=== PATIENT | female | born 2000 | race Hispanic/Latino ===

== ENCOUNTER 2024-07-09 19:08 | Emergency (ER) | payer SELFPAY ==
[~2024-07-09] VITALS: Ht 157.5 cm; Wt 65.8 kg
[2024-07-09] MEDS ORDERED: CLIN-141 PO (19:38)
--- NOTE | 2024-07-09 19:39 | ERN ---
ED Note History of Present Illness Stated Complaint: WOUND LEFT ARM Chief Complaint: Wound Check Time Seen by MD: 19:15 Dictation: PATIENT IS A 24-YEAR-OLD FEMALE WHO WITH A RAISE PAINFUL LESION TO HER LEFT LATERAL DISTAL BICEPS AREA SHE HAS HAD FOR ONE WEEK. NO FEVER NO CHILLS NO NAUSEA VOMITING HISTORY OF DIABETES. SHE STATES SHE THINKS IT MIGHT HAVE BEEN AN INSECT BITE. SHE DOES NOT HAVE A PRIMARY CARE DOCTOR IN USES EMERGENCY ROOMS FOR HEALTH CARE. Allergies: Coded Allergies: No Known Allergies (Unverified Allergy, Unknown, 07/09/24) Past Medical History Past Medical History: No Pertinent History Surgical History: None PSYCH History: no pertinent psych hx History: Not Applicable LMP: Jun 11, 2024 RN Note Reviewed/Agreed w/PFSH: Yes Review of System Dictation CONSTITUTIONAL: NEGATIVE EXCEPT FOR HPI HEAD/FACE: NEGATIVE EXCEPT FOR HPI EENT: NEGATIVE EXCEPT FOR HPI RESPIRATORY: NEGATIVE EXCEPT FOR HPI GASTROINTESTINAL/ABDOMINAL: NEGATIVE EXCEPT FOR HPI GENITOURINARY: NEGATIVE EXCEPT FOR HPI MUSCULOSKELETAL: NEGATIVE EXCEPT FOR HPI INTEGUMENTARY: NEGATIVE EXCEPT FOR HPI TENDER LESION TO LEFT LOWER LATERAL BICEP NEUROLOGICAL/PSYCH: NEGATIVE EXCEPT FOR HPI HEMATOLOGIC/LYMPHATIC: NEGATIVE EXCEPT FOR HPI ALL SYSTEMS NEGATIVE, EXCEPT NOTED ABOVE. 13 POINT REVIEW OF SYSTEMS ASSESSED AND ALL NEGATIVE EXCEPT FOR ABOVE. Initial Vital Sign VS Vital Signs Date Time Temp Pulse Resp B/P (MAP) Pulse Ox O2 Delivery O2 Flow Rate FiO2 07/09/24 19:09 97.0 59 18 118/71 100 Room Air Physical Exam Dictation VITAL SIGNS REVIEWED GENERAL APPEARANCE: ALERT, ORIENTED X 3, MILD ACUTE DISTRESS, WELL DEVELOPED, NOURISHED. HEAD AND FACE: NON-TRAUMATIC. EYES: PERRL, PINK CONJUNCTIVAS, EYELID NO TRAUMA, ANTERIOR CHAMBER WITH ARCUS SENILIS. EARS: PINNAS INTACT AND NO SIGNS OF TRAUMA OR ERYTHEMA EAR CANALS CLEAR AND NO DISCHARGE TM NO ERYTHEMA NOSE: NO DISCHARGE, NO BLEEDING. OROPHARYNX: MOUTH NORMAL, TONGUE PINK, PHARYNX CLEAR,NO ERYTHEMA, TONSILS NO EXUDATES, NO ABSCESSES NOTED, MUCOUS MEMBRANE MOIST NECK: SUPPLE, NON-TENDER, NO THYROMEGALY, NO MASSES, NO JVD, NO BRUITS BREAST:DEFERRED CHEST:NO TENDERNESS, NO CREPITUS, NO PARADOXICAL MOVEMENT, NO RETRACTIONS LUNGS:CLEAR, WELL-VENTILATED, SYMMETRIC, NO RALES, NO WHEEZING, NO RHONCHI, NO STRIDOR, GOOD BREATH SOUNDS BILATERALLY HEART: REGULAR RATE, REGULAR RHYTHM, NO MURMUR, NO GALLOPS VASCULAR: NO PERIPHERAL EDEMA, ABDOMEN: SOFT, POSITIVE BOWEL SOUNDS, NONDISTENDED, NO GUARDING, NONTENDER, NO REBOUND, NO MASSES NO HEPATOMEGALY, NO SPLENOMEGALY, NO KING'S SIGN, NO HERNIAS. RECTAL: DEFERRED GENITAL: DEFERRED NEUROLOGICAL: NORMAL SPEECH, MOTOR FUNCTION INTACT, SENSORY FUNCTION INTACT MUSCULOSKELETAL: NECK NONTENDER, FULL RANGE OF MOTION, BACK NONTENDER, FULL RANGE OF MOTION, EXTREMITIES: NONTENDER, FULL RANGE OF MOTION SKIN: COLOR PINK, DRY, MACULAR LESION TO LEFT LATERAL DISTAL BICEPS. NO INDURATION, APPEARS FOLLICULAR. LYMPHATIC: DEFERRED Results (Laboratory/Radiology) Labs Reviewed?: Yes ED Course ED Course Orders Procedure Category Date Status Time Acetaminophen 500mg PHA 07/09/24 Transmitted Tab (Tylenol 500mg T 20:00 Vital Signs Date Time Temp Pulse Resp B/P (MAP) Pulse Ox O2 Delivery O2 Flow Rate FiO2 07/09/24 19:09 97.0 59 18 118/71 100 Room Air Medical Decision Making [facility] MEDICAL DISCHARGE MAKING BASED ON EMPIRIC TREATMENT FOR A POSSIBLE INFECTED INSECT BITE. PATIENT TREATED FOR PAIN IN THE EMERGENCY ROOM WITH TYLENOL WE WILL BE PRESCRIBED CLINDAMYCIN Q.I.D. FOR 10 DAYS GIVEN A LIST OF LOCAL DOCTORS FOLLOW UP IN THE NEXT SEVERAL DAYS. DX & DISP Disposition: Discharge Departure Impression: Primary Impression: Infected insect bite of left arm Condition: Stable Scripts Clindamycin HCl (Clindamycin HCl) 300 Mg Capsule 1 CAP PO QID for 10 Days, #40 CAP 0 Refills Prov: SP JIMENEZ MANAGER WIRELESS 07/09/24 Additional Instructions: FOLLOW-UP WITH PRIMARY CARE PROVIDER IN 1 TO 2 DAYS. TAKE MEDICATIONS DIRECTED HERE IN THE EMERGENCY ROOM. OKAY TO CONTINUE HOME MEDICATIONS UNLESS OTHERWISE DISCUSSED DURING YOUR VISIT IN THE EMERGENCY ROOM TODAY. RETURN TO YOUR NEAREST EMERGENCY ROOM IF SYMPTOMS WORSEN OR IF THERE IS NO IMPROVEMENT. CALL 911 IF YOU NEED IMMEDIATE ASSISTANCE. TAKE TYLENOL OR MOTRIN [id number] NEEDED AND IF NO CONTRAINDICATIONS ARE PRESENT. INCREASE ORAL HYDRATION. A WOUND CULTURE OR URINE CULTURE WAS ORDERED HERE IN THE EMERGENCY ROOM DEPARTMENT PLEASE FOLLOW-UP WITH PRIMARY CARE PROVIDER AND ADVISE THEM TO GET REPEAT PORTS FROM OUR FACILITY. IF YOU HAD ANY LUZ WRAP/SPLINTS THAT WERE APPLIED HERE, PLEASE DO NOT REMOVE THEM UNTIL YOU SEE YOUR PRIMARY CARE OR SPECIALTY. TAKE TYLENOL NEEDED FOR PAIN. TAKE ANTIBIOTICS DIRECTED UNTIL GONE. FOLLOW UP WITH ONE OF THE DOCTORS ON THE LIST PROVIDED YOU IN THE NEXT 2-3 DAYS IF NO IMPROVEMENT. Referrals: SELF,REFERRAL (PCP) Time of Disposition: 19:37 I have reviewed the case, and I agree with, Diagnosis and Plan SP JIMENEZ MANAGER WIRELESS Jul 09, 2024 19:38
[2024-07-09] MEDS: acetaMINOPHEN 500 MG TABLET PO ONE (19:45)
[2024-07-09 19:55] VITALS: BP 125/65; PULSE 78; RESP 18; TEMP 98.5; O2SAT 99
== END 2024-07-09 20:02 | disposition home or self-care (01) ==
LOC: EDH 19:08
DX: S50.862A Insect bite (nonvenomous) of left forearm, initial encounter (principal); W57.XXXA Bitten or stung by nonvenomous insect and other nonvenomous arthropods, initial encounter
CPT/HCPCS: 99283